=== PATIENT | male | born 1985 | race Caucasian/White ===

== ENCOUNTER 2017-02-17 11:54 | Emergency (ER) | payer OTHER ==
[2017-02-17 12:45] VITALS: BP 109/84
--- NOTE | 2017-02-17 13:58 | UC ---
Skin Complaint HPI - HPI Summary HPI Summary: left foot redness and swelling x 2 days was sting by a bee on his left foot 2 days ago , now the area is red and swollen , + itchy, mild tenderness no fever, no chills, - History of Current Complaint Chief Complaint: UCLowerExtremity Time Seen by Provider: 02/17/17 13:25 Stated Complaint: LEFT FOOT COMPLAINT Hx Obtained From: Patient Onset/Duration: Sudden Onset, Lasting Days - 2, Still Present Timing: Constant Onset Severity: Moderate Pain Intensity: 6 Pain Scale Used: 0-10 Numeric Location: Foot (Left) Character: Swelling, Pruritus, Pain, Redness, Raised Aggravating Factor(s): Nothing Alleviating Factor(s): Nothing Associated Signs & Symptoms: Positive: Tenderness. Negative: Numbness, Weakness , Fever, Chills - Allergy/Home Medications Allergies/Adverse Reactions: Allergies Allergy/AdvReac Type Severity Reaction Status Date / Time No Known Allergies Allergy Verified 02/17/17 12:45 Home Medications: Home Medications Ibuprofen TAB* [Motrin TAB* 600 MG] 600 mg PO Q8H PRN 02/17/17 [History Confirmed 02/17/17] Sertraline* [Zoloft*] 200 mg PO DAILY 02/17/17 [History Confirmed 02/17/17] Review of Systems Constitutional: Negative Eyes: Negative ENT: Negative Respiratory: Negative Is Patient Immunocompromised?: No All Other Systems Reviewed And Are Negative: Yes PMH/Surg Hx/FS Hx/Imm Hx Previously Healthy: Yes - Surgical History Surgical History: None - Family History Known Family History: Negative: Diabetes - Social History Alcohol Use: None Substance Use Type: None Smoking Status (MU): Heavy Every Day Tobacco Smoker Physical Exam Triage Information Reviewed: Yes Appearance: Well-Appearing, No Pain Distress, Well-Nourished Vital Signs: Initial Vital Signs Temp 98.3 F 02/17/17 12:40 Pulse 84 02/17/17 12:40 Resp 18 02/17/17 12:40 BP 109/84 02/17/17 12:40 Eye Exam: Normal Eyes: Positive: Conjunctiva Clear ENT: Positive: Normal ENT inspection, Hearing grossly normal, Pharynx normal Neck exam: Normal Neck: Positive: Supple, Nontender, No Lymphadenopathy Respiratory: Positive: Chest non-tender, Lungs clear, Normal breath sounds Cardiovascular: Positive: RRR, No Murmur, Pulses Normal Skin Exam: Other - left foot: + swelling, + erythem, mild tenderness, Course/Dx - Diagnoses Provider Diagnoses: cellulitis left foot Discharge - Discharge Plan Condition: Stable Disposition: HOME Prescriptions: Cephalexin CAP* [Keflex CAP*] 500 mg PO TID #30 cap Triamcinolone 0.1% CREAM (NF) [Kenalog 0.1% Cream (NF)] 1 applic TOPICAL BID # 30 gm Patient Education Materials: Cellulitis (ED), Insect Bite or Sting (ED) Referrals: Non Staff,Doctor [Primary Care Provider] - 7 Days
== END 2017-02-17 13:49 | disposition home or self-care (01) ==
LOC: EDBD → UCCORT 11:54
DX: L03.116 Cellulitis of left lower limb (principal); T63.441A Toxic effect of venom of bees, accidental (unintentional), initial encounter; F17.210 Nicotine dependence, cigarettes, uncomplicated; X58.XXXA Exposure to other specified factors, initial encounter
CPT/HCPCS: 99202; G0463

== ENCOUNTER 2017-05-02 13:22 | Emergency (ER) | payer OTHER ==
[2017-05-02 17:09] VITALS: BP 101/88
--- NOTE | 2017-05-02 17:39 | UC ---
Abdominal Pain Male HPI - History of Current Complaint Chief Complaint: UCGI Stated Complaint: PERSONAL Time Seen by Provider: 05/02/17 17:29 - Allergies/Home Medications Allergies/Adverse Reactions: Allergies Allergy/AdvReac Type Severity Reaction Status Date / Time No Known Allergies Allergy Verified 05/02/17 17:09 Home Medications: Home Medications Acetaminophen [Acetaminophen Extra Stren] 500 mg PO DAILY PRN 05/02/17 [History Confirmed 05/02/17] PMH/Surg Hx/FS Hx/Imm Hx - Surgical History Surgical History: Yes Surgery Procedure, Year, and Place: cardiac ablation 2009 - Family History Known Family History: Negative: Diabetes - Social History Alcohol Use: None Substance Use Type: None Smoking Status (MU): Heavy Every Day Tobacco Smoker Physical Exam Vital Signs: Initial Vital Signs Temp 99.2 F 05/02/17 17:00 Pulse 81 05/02/17 17:00 Resp 18 05/02/17 17:00 BP 101/88 05/02/17 17:00 Discharge - Discharge Plan Referrals: No Primary Care Phys,NOPCP [Primary Care Provider] -
== END 2017-05-02 17:55 | disposition home or self-care (01) ==
LOC: UCCORT 13:22
DX: R10.9 Unspecified abdominal pain (principal); F17.200 Nicotine dependence, unspecified, uncomplicated
CPT/HCPCS: 99212; G0463

== ENCOUNTER 2017-08-26 11:07 | Emergency (ER) | payer OTHER ==
--- NOTE | 2017-08-26 11:14 | UC ---
Lower Extremity/Ankle HPI - HPI Summary HPI Summary: Pt presents with right foot pain. He tells me that 4 days ago he was walking and inverted his right ankle/foot. Had some mild pain at the base of the 5th MT that has persisted since that time. Has been taking ibuprofen and doing RICE therapy with total relief of his symptoms - however when he starts ambulating again, his pain with return at the same location. Denies numbness, tingling, or hx of injury to this area. - History of Current Complaint Stated Complaint: RIGHT FOOT/ANKLE INJURY Time Seen by Provider: 08/26/17 11:14 Hx Obtained From: Patient Onset/Duration: Sudden Onset Severity Initially: Mild Severity Currently: Mild Pain Intensity: 3 Pain Scale Used: 0-10 Numeric Aggravating Factor(s): Ambulation Alleviating Factor(s): Rest, Elevation, Ice Able to Bear Weight: Yes - Allergies/Home Medications Allergies/Adverse Reactions: Allergies Allergy/AdvReac Type Severity Reaction Status Date / Time No Known Allergies Allergy Verified 08/26/17 11:20 PMH/Surg Hx/FS Hx/Imm Hx Previously Healthy: Yes Psychological History: Anxiety, Depression - Surgical History Surgical History: Yes Surgery Procedure, Year, and Place: cardiac ablation 2009 - Family History Known Family History: Negative: Diabetes - Social History Lives: With Family Alcohol Use: None Substance Use Type: None Smoking Status (MU): Heavy Every Day Tobacco Smoker Review of Systems Constitutional: Negative Respiratory: Negative Cardiovascular: Negative Neurovascular: Negative Musculoskeletal: Other: - Right foot pain Neurological: Negative Psychological: Negative All Other Systems Reviewed And Are Negative: Yes Physical Exam - Summary Physical Exam Summary: GENERAL: NAD. WDWN. No pain distress. SKIN: No rashes, sores, ulcers, masses, lesions. NECK: Supple. Nontender. No lymphadenopathy. CHEST: CTAB. No r/r/w. No accessory muscle use. Breathing comfortably and in no distress. CV: RRR. Without m/r/g. Pulses intact PT and DP. Brisk cap refill. MSK: Right foot/ankle: Mild TTP at base of 5th MTP. Right ankle NTTP. Strength 5 /5. No edema or obvious bony deformities. Negative talar tilt. No increased laxity. Negative Miranda test. NEURO: Alert. Sensations intact and symmetric B/L LEs PSYCH: Age appropriate behavior. Triage Information Reviewed: Yes Lower Extremity Course/Dx - Course Course Of Treatment: XR: IMPRESSION: NO EVIDENCE FOR FRACTURE. Suspect foot sprain. Offered post-op shoe, RENITA wrap, crutches, and walking boot. Pt elected to use crutches and continue with RICE therapy. - Differential Dx/Diagnosis Provider Diagnoses: Right foot sprain Discharge - Sign-Out/Discharge Documenting (check all that apply): Discharge/Admit/Transfer - Discharge Plan Condition: Stable Disposition: HOME Patient Education Materials: Metatarsalgia (DC) Referrals: Ricky Leblanc MD [Primary Care Provider] - Additional Instructions: If you develop a fever, shortness of breath, chest pain, new or worsening symptoms - please call your PCP or go to the ED. 1) Rest, Ice, and elevate your foot as much as possible 2) Use your crutches as needed for pain and comfort - Billing Disposition and Condition Condition: STABLE Disposition: HOME
[2017-08-26 11:23] VITALS: BP 111/68
--- NOTE | 2017-08-26 11:48 | RAD ---
INDICATION: Right foot injury. TECHNIQUE: 3 views of the right foot were obtained. FINDINGS: The bones are in normal alignment. No fracture is seen. Joint spaces appear maintained. IMPRESSION: NO EVIDENCE FOR FRACTURE.
== END 2017-08-26 12:23 | disposition home or self-care (01) ==
LOC: UCCORT 11:07
DX: S93.601A Unspecified sprain of right foot, initial encounter (principal); X50.0XXA Overexertion from strenuous movement or load, initial encounter; Y93.01 Activity, walking, marching and hiking; Y92.9 Unspecified place or not applicable; F17.200 Nicotine dependence, unspecified, uncomplicated
CPT/HCPCS: 99212; G0463